=== PATIENT | female | born 1995 | race African-American/Black ===

== ENCOUNTER 2020-02-10 22:18 | Emergency (ER) | payer SELFPAY ==
[~2020-02-10] VITALS: Ht 177.8 cm; Wt 84.4 kg
[2020-02-10 22:30] VITALS: BP 123/76
--- NOTE | 2020-02-10 22:30 | NUR ---
ED Nurse Note: patient ambulated to ed c/o headache and anxiety due to personal and environmental stressors. Pt is emotional and anxious. ao4. vitals stable. changed into gown; and placed on monitor.
[2020-02-10] MEDS ORDERED: LORazepam 1mg tab ORAL ONE (22:45)
--- NOTE | 2020-02-10 23:30 | NUR ---
ED Nurse Note: patient states she feels better and anxiety has dissipated; requests to be discharged. ermd at bedside for evaluation.
[2020-02-10] MEDS ORDERED: ATIVAN1 MG ORAL (23:43)
--- NOTE | 2020-02-10 23:45 | NUR ---
ER DISCHARGE NOTE: Patient is cleared to be discharged per ERMD, pt is aox4, on room air, with stable vital signs. pt was given dc and prescription instructions, pt was able to verbalize understanding, pt id bandremoved. pt is able to ambulate with steady gait. pt took all belongings.
[2020-02-10 23:48] VITALS: BP 119/73
--- NOTE | 2020-02-11 01:16 | Emergency Room Report ---
History of Present Illness General Chief Complaint: General Complaint Source: Patient Present Illness HPI 24-year-old female presents to ED for anxiety. Presented to ED tearful and crying. States she feels very anxious. States that she recently moved here and states that she is having problems with her roommate who was trying to kick her out. States she is talked to the police many times but they have not been helpful. States that she does have anxiety in the past but never this bad. Denies hearing voices. Denies SI or HI. Denies drug use. No other aggravating relieving factors. Denies any other associated symptoms Allergies: Coded Allergies: ASPIRIN (Verified Allergy, Unknown, 02/10/20) COVID-19 Screening Contact w/high risk pt: No Experienced COVID-19 symptoms?: No COVID-19 Testing performed TROUBLE TRACER: No Patient History Past Medical History: psych hx Past Surgical History: none Pertinent Family History: none Social History: Denies: smoking, alcohol use, drug use Last Menstrual Period: unk Now: No Immunizations: UTD Reviewed Nursing Documentation: PMH: Agreed; PSxH: Agreed Nursing Documentation-PMH History Of Psychiatric Problem: Yes - anxiety Review of Systems All Other Systems: negative except mentioned in HPI Physical Exam Vital Signs Date Time Temp Pulse Resp B/P (MAP) Pulse Ox O2 Delivery O2 Flow Rate FiO2 02/10/20 22:27 97.9 79 22 123/76 (92) 98 Room Air Sp02 EP Interpretation: reviewed, normal General Appearance: no apparent distress, alert, GCS 15, non-toxic Head: normocephalic, atraumatic Eyes: bilateral eye normal inspection, bilateral eye PERRL ENT: hearing grossly normal, normal pharynx, no angioedema, normal voice Neck: full range of motion, supple/symm/no masses Respiratory: chest non-tender, lungs clear, normal breath sounds, speaking full sentences Cardiovascular #1: regular rate, rhythm, no edema Cardiovascular #2: 2+ carotid (R), 2+ carotid (L), 2+ radial (R), 2+ radial (L) , 2+ dorsalis pedis (R), 2+ dorsalis pedis (L) Gastrointestinal: normal bowel sounds, non tender, soft, non-distended, no guarding, no rebound Rectal: deferred Genitourinary: normal inspection, no CVA tenderness Musculoskeletal: back normal, normal range of motion, gait/station normal, non- tender Neurologic: alert, motor strength/tone normal, oriented x3, sensory intact, responsive, speech normal Psychiatric: no suicidal/homicidal ideation, no delusions, anxious Reflexes: 3+ bicep (R), 3+ bicep (L), 3+ tricep (R), 3+ tricep (L), 3+ knee (R) , 3+ knee (L) Skin: no rash Lymphatic: no adenopathy Medical Decision Making Diagnostic Impression: Primary Impression: Anxiety ER Course Hospital Course 24 yo F presents c/o anxiety. crying on arrival Clinical course Patient placed on stretcher. Given that patient is able to provide an adequate history, I see no need to check blood work or place an IV. Patient is tearful however is maintaining good eye contact. No SI or HI. I do not believe patient is danger to self or others. Given Ativan in ED. Allowed to rest. On reassessment patient states she is feeling better. States that she is currently scheduled to move this week so she will not be dealing with his roommate for much longer. I agreed to provide her with short course of Ativan. States she does not have a PMD. I will provide referrals. Safe for discharge close outpatient follow-up Diagnosis - anxiety stable and discharged to home. Followup with PMD. Return to ED if symptoms recur or worsen Last Vital Signs Date Time Temp Pulse Resp B/P (MAP) Pulse Ox O2 Delivery O2 Flow Rate FiO2 02/10/20 23:48 97.9 69 14 119/73 100 Room Air Status: improved Disposition: HOME, SELF-CARE Condition: Stable Scripts Lorazepam* (ATIVAN*) 1 Mg Tablet 1 MG ORAL BEDTIME, #10 TAB Prov: Brock Ng MD 02/10/20 Referrals: NOT CHOSEN IPA/,REFERRING (PCP) [facility] Patient Instructions: Panic Attacks, [id number] Brock Ng MD Feb 11, 2020 01:16
== END 2020-02-10 23:45 | disposition home or self-care (01) ==
LOC: EMR 22:43
DX: F41.9 Anxiety disorder, unspecified (principal); Z88.6 Allergy status to analgesic agent
CPT/HCPCS: 99281

== ENCOUNTER 2020-06-24 17:56 | Emergency (ER) | payer BC ==
[~2020-06-24] VITALS: Ht 177.8 cm; Wt 81.6 kg
[~2020-06-24 17:56] MED LIST: ATIVAN1 MG ORAL
[2020-06-24 19:01] VITALS: BP 130/78
[2020-06-24 19:23] LABS: BASOPHILS % (AUTO) 1.1 % (0.0-2.0); EOSINOPHILS % (AUTO) 1.1 % (0.0-3.0); HEMATOCRIT 40.2 % (37.0-47.0); HEMOGLOBIN 13.2 G/DL (12.0-16.0); LYMPHOCYTES % (AUTO) 35.2 % (20.0-45.0); MEAN CORPUSCULAR VOLUME 81 FL (80-99); NEUTROPHILS % (AUTO) 55.6 % (45.0-75.0); PLATELET COUNT 220 K/UL (150-450); RED BLOOD COUNT 4.98 M/UL (4.20-5.40); RED CELL DISTRIBUTION WIDTH 14.4 % (11.6-14.8); WHITE BLOOD COUNT 7.7 K/UL (4.8-10.8)
[2020-06-24 19:24] LABS: APPEARANCE,URINE SLIGHTLY CLOUDY; BILIRUBIN, URINE NEGATIVE (NEGATIVE); COLOR,URINE PALE YELLOW; GLUCOSE, URINE (UA) NEGATIVE (NEGATIVE); KETONES,URINE NEGATIVE (NEGATIVE); LEUKOCYTE ESTERASE ,URINE NEGATIVE (NEGATIVE); NITRITE,URINE POSITIVE (NEGATIVE); PH,URINE 6 (4.5-8.0); PROTEIN,URINE NEGATIVE (NEGATIVE); UROBILINOGEN,URINE NORMAL MG/DL (0.0-1.0)
[2020-06-24 19:30] LABS: ANION GAP 6 mmol/L (5-15); BLOOD UREA NITROGEN 16 mg/dL (7-18); CALCIUM 9.1 MG/DL (8.5-10.1); CARBON DIOXIDE 28 MMOL/L (21-32); CHLORIDE 104 MMOL/L (98-107); CREATININE 1.1 MG/DL (0.55-1.30); POTASSIUM 3.8 MMOL/L (3.5-5.1); SODIUM 138 MMOL/L (136-145)
[2020-06-24 19:36] LABS: ALANINE AMINOTRANSFERASE 24 U/L (12-78); ALBUMIN 4.1 G/DL (3.4-5.0); ALKALINE PHOSPHATASE 78 U/L (46-116); ASPARTATE AMINO TRANSFERASE 15 U/L (15-37); BILIRUBIN,TOTAL 0.3 MG/DL (0.2-1.0)
--- NOTE | 2020-06-24 19:48 | Diagnostic Imaging Report ---
EXAM: US Abdomen Complete CLINICAL HISTORY: PAIN TECHNIQUE: Real-time ultrasound of the abdomen with image documentation. COMPARISON: No relevant prior studies available. FINDINGS: Liver: Liver 16 cm No intrahepatic bile duct dilation. Gallbladder: Unremarkable. No gallstones. Common bile duct: Unremarkable as visualized. No stones. No dilation. Pancreas: Unremarkable as visualized. Kidneys: Right kidney 10.6 and ureters. Left kidney 10.4 submitters No stones. No hydronephrosis. Spleen: Spleen 7 cm Aorta: Unremarkable. No aneurysm. Inferior vena cava: IVC 1.7 cm Other findings: GB wall 0.2 cm IMPRESSION: 1. No acute abnormality definitively identified to account for patient presentation. 2. Unremarkable study.
--- NOTE | 2020-06-24 19:54 | Emergency Room Report ---
History of Present Illness General Chief Complaint: Abdominal Pain Source: Patient Present Illness HPI 24-year-old female with no significant past medical history here complaining of 1 week of epigastric and left upper quadrant abdominal which is worse upon laying down. Patient also moved heavy furniture 2 days ago. Went to primary doctor earlier today and was given an order for ultrasound as outpatient of the left upper quadrant. However patient decided to come to the emergency room as the imaging center was closed. Denies any nausea vomiting diarrhea constipation. Reports that she eats a lot of spicy and acidic food. Reports that she currently has a UTI and was given antibiotic however has not started the antibiotic yet. Patient otherwise stable. Denies chest pain, shortness of breath, headache or dizziness. Denies all URI symptoms. Denies any bloody stools Allergies: Coded Allergies: ASPIRIN (Verified Allergy, Unknown, 02/10/20) COVID-19 Screening Contact w/high risk pt: No Experienced COVID-19 symptoms?: No COVID-19 Testing performed GROCERY DELIVERER: No Patient History Past Medical History: see triage record Past Surgical History: none Pertinent Family History: none Last Menstrual Period: implant Now: No Immunizations: UTD Reviewed Nursing Documentation: PMH: Agreed; PSxH: Agreed Nursing Documentation-PMH Past Medical History: No Stated History Review of Systems All Other Systems: negative except mentioned in HPI Physical Exam Vital Signs Date Time Temp Pulse Resp B/P (MAP) Pulse Ox O2 Delivery O2 Flow Rate FiO2 06/24/20 17:56 98.8 76 18 130/78 (95) 98 Room Air Sp02 EP Interpretation: reviewed, normal General Appearance: no apparent distress, alert, GCS 15, non-toxic Head: normocephalic, atraumatic Eyes: bilateral eye normal inspection, bilateral eye PERRL ENT: hearing grossly normal, normal pharynx, no angioedema, normal voice Neck: full range of motion, supple/symm/no masses Respiratory: chest non-tender, lungs clear, normal breath sounds, no rhonchi, no respiratory distress, no retraction, speaking full sentences Cardiovascular #1: regular rate, rhythm, no edema Gastrointestinal: non tender, soft, no mass, no organomegaly, no peritonitis, no bruit, non-distended, no guarding, other - Negative McBurney's, Rovsing's, Bell's Genitourinary: no CVA tenderness Musculoskeletal: back normal Neurologic: alert, motor strength/tone normal, oriented x3, sensory intact, responsive, speech normal Psychiatric: judgement/insight normal, memory normal, mood/affect normal, no suicidal/homicidal ideation Skin: no rash Lymphatic: no adenopathy Medical Decision Making PA Attestation ALL Diagnosis and treatment plan reviewed and discussed with my supervising physician Dr. Ashraf Diagnostic Impression: Primary Impression: Gastritis Additional Impression: UTI (urinary tract infection) ER Course 24-year-old female with no significant past medical history here complaining of 1 week of epigastric and left upper quadrant abdominal which is worse upon laying down. Patient also moved heavy furniture 2 days ago. Went to primary doctor earlier today and was given an order for ultrasound as outpatient of the left upper quadrant. However patient decided to come to the emergency room as the imaging center was closed. Denies any nausea vomiting diarrhea constipation. Reports that she eats a lot of spicy and acidic food. Reports that she currently has a UTI and was given antibiotic however has not started the antibiotic yet. Patient otherwise stable. Denies chest pain, shortness of breath, headache or dizziness. Denies all URI symptoms. Denies any bloody stools Ddx considered but are not limited to: appendicitis, cholecystis, gastritis, gastroenteritis, UTI, pyelonephritis, SBO, diverticulitis, influenza with GI manifestation, NM, complication with Vital signs: are WNL, pt. is afebrile H&PE are most consistent with: Gastritis, UTI, patient is already under treatment for UTI ORDERS: CBC, CMP, UA, tox pain, Abdominal Ultrasound,pepcid ED INTERVENTIONS: pepcid DISCHARGE: At this time pt. is stable for d/c to home. Will provide printed patient care instructions, and any necessary prescriptions. Care plan and follow up instructions have been discussed with the patient prior to discharge. Take medication as directed, avoiding acidic spicy food, have primary doctor tested for H. pylori, also gastroenterology referral may be needed, if worsening symptoms return to the emergency room CT/MRI/US Diagnostic Results CT/MRI/US Diagnostic Results : Imaging Test Ordered: abdominal US Impression No relevant prior studies available. FINDINGS: Liver: Liver 16 cmNo intrahepatic bile duct dilation. Gallbladder:Unremarkable. No gallstones. Common bile duct:Unremarkable as visualized. No stones. No dilation. Pancreas:Unremarkable as visualized. Kidneys:Right [id number] and ureters. Left [id number] submitters No stones. No hydronephrosis. Spleen: Spleen 7 cm Aorta:Unremarkable. No aneurysm. Inferior vena cava: IVC 1.7 cm Other findings:GB wall 0.2 cm IMPRESSION: 1. No acute abnormalitydefinitivelyidentified to account for patient presentation. 2. Unremarkable study. Radiologist: Arnulfo Cardoza MD Last Vital Signs Date Time Temp Pulse Resp B/P (MAP) Pulse Ox O2 Delivery O2 Flow Rate FiO2 06/24/20 19:01 98.8 76 18 130/78 98 Room Air Disposition: HOME, SELF-CARE Condition: Stable Referrals: NOT CHOSEN IPA/,REFERRING (PCP) Patient Instructions: Gastritis, Adult, [id number] Additional Instructions: Take medication as directed, avoiding acidic spicy food, have primary doctor tested for H. pylori, also gastroenterology referral may be needed, if worsening symptoms return to the emergency room Gerri Tuttle Jun 24, 2020 19:54
[2020-06-24] MEDS ORDERED: FAMOTIDINE20 MG ORAL (19:55)
[2020-06-24 20:08] VITALS: BP 128/72
== END 2020-06-24 20:08 | disposition home or self-care (01) ==
LOC: EMR 18:23
DX: K29.70 Gastritis, unspecified, without bleeding (principal); N39.0 Urinary tract infection, site not specified; Z88.6 Allergy status to analgesic agent
CPT/HCPCS: 36415; 76700; 80053; 80307; 81003; 81025; 85025; 87086; 87181; 96374; 99284; S0028